=== PATIENT | female | born 1965 | race Caucasian/White ===

== ENCOUNTER 2016-06-20 11:33 | Emergency (ER) | payer OTHER ==
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
--- NOTE | 2016-06-20 13:07 | ED ORDER SUMMARY ---
..... Patient: JAY PRICE OrderSheet [facility] VisitID: [id number] [address] [place] [address] 51y, F Registration Date/Time: 06/20/2016 ORDER SHEET Weight: 103.4 kg (stated) Allergies: No Known Drug Allergy GENERAL ORDERS: CBC w Diff Urgent (12:00 06/20/2016 Rhett Esquivel) (Ack 12:02 Елена) (12:20 JSanders R.N.) CMP Urgent (12:06/20/2016 Rhett Esquivel) (Ack 12:02 Елена) (12:20 JSanders R.N.) UA-Culture if indicated Urgent (12:00 06/20/2016 Rhett Esquivel) (Ack 12:02 Елена) (12:41 JSanders R.N.) BNP Urgent (12:00 06/20/2016 Rhett Esquivel) (Ack 12:02 Елена) (12:20 JSanders R.N.) D-Dimer Urgent (12:00 06/20/2016 Rhett Esquivel) (Ack 12:02 Елена) (12:20 JSanders R.N.) MEDICATION ORDERS: IV FLUIDS: IV Saline Lock (12:00 06/20/2016 Rhett Esquivel) (12:20 JSanders R.N.) ORDER SHEET NOTES: [Electronically signed by Tru Owen Dr. (13:09 06/20/2016)] [Electronically signed by Jennifer Cosby R.N. (13:48 06/20/2016)] [Electronically locked/signed by Jennifer Cosby R.N. (13:48 06/20/2016)]
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
--- NOTE | 2016-06-20 13:07 | ED ORDER SUMMARY ---
..... Patient: JAY PRICE OrderSheet [facility] VisitID: [id number] [address] [place] [address] 51y, F Registration Date/Time: 06/20/2016 ORDER SHEET Weight: 103.4 kg (stated) Allergies: No Known Drug Allergy GENERAL ORDERS: CBC w Diff Urgent (12:00 06/20/2016 Rhett Esquivel) (Ack 12:02 Елена) (12:20 JSanders R.N.) CMP Urgent (12:06/20/2016 Rhett Esquivel) (Ack 12:02 Елена) (12:20 JSanders R.N.) UA-Culture if indicated Urgent (12:00 06/20/2016 Rhett Esquivel) (Ack 12:02 Елена) (12:41 JSanders R.N.) BNP Urgent (12:00 06/20/2016 Rhett Esquivel) (Ack 12:02 Елена) (12:20 JSanders R.N.) D-Dimer Urgent (12:00 06/20/2016 Rhett Esquivel) (Ack 12:02 Елена) (12:20 JSanders R.N.) MEDICATION ORDERS: IV FLUIDS: IV Saline Lock (12:00 06/20/2016 Rhett Esquivel) (12:20 JSanders R.N.) ORDER SHEET NOTES: [Electronically signed by Tru Owen Dr. (13:09 06/20/2016)] [Electronically signed by Jennifer Cosby R.N. (13:48 06/20/2016)] [Electronically locked/signed by Jennifer Cosby R.N. (13:48 06/20/2016)]
--- NOTE | 2016-06-20 13:48 | ED DISCHARGE INSTRUCTIONS ---
Patient: JAY PRICE General Instructions [facility] VisitID: [id number] [place] [address] 51y, F Registration Date/Time: 06/20/2016 Bilateral pedal edema secondary to unknown cause. INSTRUCTIONS Follow a low salt diet. Your Current Medications: CONTINUE TAKING THE FOLLOWING MEDICATIONS: Atripla Oral : Tablet 600-200-300 mg, 1 tablet evenings. Cyclobenzaprine HCl ER Oral : 5 mg at bedtime. OxyCODONE HCl Oral : 5 mg, prn. Tylenol Oral. Follow-up: Follow up with your doctor in about two days. Call for an appointment. Screening today revealed the patient's blood pressure to be in the pre-hypertensive range. The patient should follow up with a primary care provider for blood pressure management. ADDITIONAL INFORMATION Leg Swelling [Bilateral] Swelling of the feet, ankles and legs is called "Edema." It is due to excess fluid collecting in the tissues. Because of gravity, excess fluid in the body settles in the lowest part. This is why the legs and feet are most affected. Some of the causes for edema include: Disease of the heart (congestive heart failure or "CHF") Prolonged standing or sitting (with the legs in the down position) Infection of the feet or legs Venous Insufficiency (congestion of blood in the veins of the legs) Varicose veins (dilated veins of the lower leg) Garters, or clothing that constricts your legs. (These will cause venous congestion by restricting blood flow.) Some medicines (hormones such as control pills; some blood pressure medicines, such as calcium channel blockers; steroids; some antidepressants such as MAO inhibitors and tricyclics.) Menstrual periods with fluid retention Renal insufficiency (a form of kidney disease) Liver failure (Some swelling is normal, but a sudden increase in leg swelling or weight gain can be a sign of a dangerous complication of ). Medical treatment will depend on the cause of your swelling. Diuretics (water pills) may be prescribed to remove excess fluid. Home Care: Do not wear garments that constrict your legs (such as garters). Elevate your legs while lying or sitting. If infection, injury or recent surgery is the cause for your swelling, stay off your legs as much as possible until symptoms improve. If your doctor says that your leg swelling is caused by venous insufficiency or varicose veins, do not sit or social services coordinator one place for long periods of time. Take breaks and walk about every few hours. Brisk walking is a good exercise and helps circulate the congested blood from your leg. Talk to your doctor about the use of support stockings to prevent daytime leg swelling. If your doctor says that heart disease is the cause of your leg swelling, follow a low-salt diet to prevent excess fluid retention. Follow Up with your doctor or as advised by our staff. Get Prompt Medical Attention if any of the following occur: New or worsening shortness of breath or chest pain Increasing swelling in both legs or ankles Swelling of the abdomen Redness, warmth or swelling in one leg Fever of 100.4F (38C) or higher, or as directed by your healthcare provider Yellow color to the skin or eyes Rapid, unexplained weight gain Low-Salt Diet (2 Grams/Day) This diet eliminates foods that are high in salt and restricts the amount of salt that you cook with. It is most often used for patients with high blood pressure, edema (fluid retention), kidney, liver, and heart disease. Table salt contains the mineral sodium. The body needs sodium to work normally. But too much sodium can make your health problems worse. Your healthcare provider is recommending a low-salt (also called low-sodium) diet for you. Your total daily allowance of salt (sodium) is 2 grams. This equals 2,000 milligrams (mg). It is less than 1 teaspoon of table salt. This means you can have only about 700 mg of sodium at each meal. When you cook, limit the salt you use. And if you can avoid using salt, even better. Do not add salt at the table. So, throw away the saltshaker! When shopping, read the package labels. Salt is often called sodium on the label. Choose foods that are Salt-Free, Low Salt, or Very Low Salt. Note that foods with Reduced Salt may notlower your salt intake enough. Beverages OK: Tea, coffee, carbonated beverages, juices AVOID: Flavored international coffees, electrolyte replacement drinks, sports beverages Bread & Cereals OK: All regular bread, rolls, cereals, cakes; low-salt crackers, matzoh crackers AVOID: Salted crackers, pretzels, popcorn; lebanese toast, pancakes, muffins Fruits & Desserts OK: Ice cream, frozen yogurt, juice bars, gelatin (Jell-O), cookies and pies, sugar, honey, jelly, hard candy AVOID: Most pies, cakes and cookies prepared or processed with salt, instant pudding Meats OK: All fresh meat, fish, poultry, low-salt tuna AVOID: Smoked, pickled, brine-cured, or salted meats or fish. Thisincludes vogel, chipped beef, corned beef, hot dogs, luncheon meats, ham, kosher meats, salt pork, sausage, canned tuna, salted codfish, smokedsalmon, ballard, sardines, or anchovies. Dairy OK: Milk, chocolate milk, hot chocolate mix; eggs, Low Salt cheeses, yogurt, egg substitute AVOID: Processed cheese, cheese spreads, Roquefort, Camembert, and cottage cheese, buttermilk, instant breakfast drink Beans, Potatoes & Pasta OK: Dry beans, split peas, lentils, potatoes, rice, macaroni, noodles, spaghetti without added salt AVOID: Potato chips, tortilla chips, and similar products Soups OK: Low-salt soups and broths made with allowed foods AVOID: Bouillon cubes, soups with smoked or salted meats, regular soup and broth Vegetables OK: Most are okay; low-salt tomato and vegetable juices AVOID: Sauerkraut and other brine-soaked vegetables, pickles and other pickled vegetables, tomato juice, olives Seasoning & Spices OK: Most seasonings are okay. Good substitutes for salt include: fresh herb blends, Tabasco, lemon, garlic, barrow, vinegar, dry mustard, parsley, cilantro, horseradish, tomato paste, regular margarine, mayonnaise, butter, cream cheese, vegetable oil, cream, low-salt salad dressing and gravy AVOID: Regular ketchup, relishes, pickles, soy sauce, teriyaki sauce, Worcestershire sauce, BBQ sauce, tartar sauce, meat tenderizer, chili sauce, regular gravy, regular salad dressing You have been given the following additional information: Peripheral Edema, Bilateral Diet, Low Salt (2Gm) (Electronically signed by Tru Owen Dr. 06/20/2016 13:09)
--- NOTE | 2016-06-20 13:48 | ED MED RECONCILIATION SUMMARY ---
Patient: JAY PRICE Medication Reconciliation Report [facility] VisitID: [id number] [address] [place] [address] 51y, F Registration Date/Time: 06/20/2016 Weight: 103.4 kg Height/Length: 68 in. BMI: 34.7 ALLERGIES: No Known Drug Allergy The patient's Home Medications are listed below: CONTINUE TAKING THE FOLLOWING MEDICATIONS: Atripla Oral (600-200-300 mg) 1 tablet, evenings Cyclobenzaprine HCl ER Oral 5 mg, at bedtime OxyCODONE HCl Oral 5 mg Tylenol Oral The source(s) of the original Home Medication information: Not obtained. The following Medications were given to the patient in the Emergency Department: None. The following Medications were prescribed to the patient: None.
--- NOTE | 2016-06-20 13:48 | ED MED RECONCILIATION SUMMARY ---
Patient: JAY PRICE Medication Reconciliation Report [facility] VisitID: [id number] [address] [place] [address] 51y, F Registration Date/Time: 06/20/2016 Weight: 103.4 kg Height/Length: 68 in. BMI: 34.7 ALLERGIES: No Known Drug Allergy The patient's Home Medications are listed below: CONTINUE TAKING THE FOLLOWING MEDICATIONS: Atripla Oral (600-200-300 mg) 1 tablet, evenings Cyclobenzaprine HCl ER Oral 5 mg, at bedtime OxyCODONE HCl Oral 5 mg Tylenol Oral The source(s) of the original Home Medication information: Not obtained. The following Medications were given to the patient in the Emergency Department: None. The following Medications were prescribed to the patient: None.
--- NOTE | 2016-06-20 13:48 | ED MAR SUMMARY ---
..... Medication Administration Record [facility] [address] [place] [place], [place] [id number] Patient: JAY PRICE Visit ID: [id number] 51y, F Weight: 103.4 kg Height/Length: 68 in BMI: 34.7 ALLERGIES: No Known Drug Allergy
--- NOTE | 2016-06-20 13:48 | ED MAR SUMMARY ---
..... Medication Administration Record [facility] [address] [place], [place] [id number] Patient: JAY PRICE Visit ID: [id number] 51y, F Weight: 103.4 kg Height/Length: 68 in BMI: 34.7 ALLERGIES: No Known Drug Allergy
== END 2016-06-20 13:45 | disposition home or self-care (01) ==
LOC: ED SRH 11:33
DX: R60.0 Localized edema (principal); Z45.2 Encounter for adjustment and management of vascular access device; C50.919 Malignant neoplasm of unspecified site of unspecified female breast; Z79.899 Other long term (current) drug therapy; Z79.891 Long term (current) use of opiate analgesic; Z79.1 Long term (current) use of non-steroidal anti-inflammatories (NSAID); Z87.891 Personal history of nicotine dependence
CPT/HCPCS: 90004; 90100; 91320; 91556; 95059

== ENCOUNTER 2016-06-23 09:26 | Outpatient (CLI) | payer OTHER ==
--- NOTE | 2016-06-23 11:12 | DIAGNOSTIC IMAGING REPORT ---
PROCEDURE: US VENOUS - LEFT EXT INDICATION: LT LE EDEMA,R/O DVT TECHNIQUE: Duplex sonography of the deep venous system in the left lower extremity was performed. Compression and augmentation techniques were used. COMPARISON: None. FINDINGS: Each interrogated segment of deep vein from the common femoral vein into the calf veins demonstrates normal compressibility, augmentation and/or color Doppler flow without filling defect. No evidence of significant soft-tissue edema, soft-tissue mass or cyst. IMPRESSION: 1. No deep venous thrombosis in the left lower extremity.
== END 2016-06-23 23:00 ==
LOC: US SRH 09:26
DX: R60.9 Edema, unspecified (principal)